=== PATIENT | male | born 1980 | race Two or more races ===

== ENCOUNTER 2017-03-09 14:39 | Emergency (ER) | payer OTHER ==
--- NOTE | 2017-03-09 15:38 | EDPHY ---
H & P Stated Complaint: fell from ladder, sent from "for MRI". back pain Time Seen by Provider: 03/09/17 15:37 HPI/ROS: CHIEF COMPLAINT: Low back pain HISTORY OF PRESENT ILLNESS: The patient presents to the ED with complaints of acute low back pain. The patient reportedly fell from a ladder at work landing on his buttock. The patient was seen at urgent care and diagnosed with a compression fracture in his back. He was sent to the ED for further evaluation. The patient denies any acute numbness or weakness. He has no history of bowel or bladder function. The patient reports moderate pain. REVIEW OF SYSTEMS: A comprehensive 10 point review of systems is otherwise negative aside from elements mentioned in the history of present illness. Source: Patient - Medical/Surgical History Hx Asthma: No Hx Chronic Respiratory Disease: No Hx Diabetes: No Hx Cardiac Disease: No Hx Renal Disease: No Hx Cirrhosis: No Hx Alcoholism: No Hx HIV/AIDS: No Hx Splenectomy or Spleen Trauma: No Other PMH: denies - Social History Smoking Status: Never smoked - Physical Exam Exam: General Appearance: Alert, mild discomfort secondary to pain Head: Atraumatic Eyes: Pupils equal, round, reactive ENT, Mouth: No hemotympanum, no oral trauma Neck: Nontender, trachea midline Respiratory: No chest wall tender, subcutaneous air, lungs clear bilaterally Cardiovascular: Regular rate and rhythm Abdomen: Abdomen is soft and nontender, pelvis stable Skin: No lacerations, No abrasion Back: Tenderness to palpation noted in the lower lumbar spine at the proximal level of L2-L3 Extremities: Nontender, full range of motion Neurological: 5/5 strength noted bilateral lower extremities, normal DTRs noted at the knees bilaterally, no clonus, no saddle anesthesia Constitutional: Initial Vital Signs Heart Rate 64 03/09/17 14:43 Respiratory Rate 18 03/09/17 14:43 Blood Pressure 129/65 H 03/09/17 14:43 O2 Sat (%) 97 03/09/17 14:43 O2 Delivery Mode Room Air Allergies/Adverse Reactions: No Known Allergies Allergy (Unverified 03/09/17 16:43) Medical Decision Making - Diagnostics Imaging Results: Imaging Impressions Lumbar Spine CT 03/09/17 16:22 Impression: 1. Mild compression fracture and spring plate of the L2 vertebral body, without retropulsion of bone or extension to the posterior elements. Results called to Dr. Wily Otto at 5:40 PM. ED Course/Re-evaluation: I reviewed the patient's outpatient x-rays which demonstrated L2 compression fracture. A CT scan was ordered for further characterization of the fracture which demonstrates no evidence of a significant retropulsion or instability. The patient is noted to be neurologically intact. He had an IV established and did receive 1 mg of IV Dilaudid. I consulted with [facility] orthopedic braces. The patient has been placed in a [place] type support brace. The patient will be discharged home with a prescription for oral narcotic medications. He is given the contact number of our on-call spine surgeon to schedule a follow-up visit in the next week with. The patient will also follow up with his workman' s Comp provider. The patient is advised to return to the emergency department for any increasing pain, numbness, weakness or other concerns. He is advised to wear the [place] brace as much as possible for support. Differential Diagnosis: Differential diagnosis considered includes compression fracture, spinal cord injury, myofascial strain - Data Points Medications Given: Discontinued Medications Hydromorphone HCl (Dilaudid) 1 mg IVP EDNOW ONE Stop: 03/09/17 16:33 Last Admin: 03/09/17 16:43 Dose: 1 mg Departure - Departure Disposition: Home, Routine, Self-Care Clinical Impression: Closed compression fracture of lumbar vertebra Qualifiers: Encounter type: initial encounter Lumbar vertebra fracture level: L2 Qualified Code(s): S32.020A - Wedge compression fracture of second lumbar vertebra, initial encounter for closed fracture Condition: Good Instructions: Vertebral Compression Fracture (ED) Additional Instructions: 1. Take Ibuprofen or Motrin 600 mg by mouth three times a day. 2. [place] as needed for severe pain 3. Please wear splint for comfort 4. Please contact the spine surgeon you have been referred to schedule a follow -up visit in the next week. 5. You do have a fracture of your lumbar spine at you. This is a nonsurgical fracture which should heal with time. 6. Please schedule a follow-up with your employers workman's Comp. 7. No heavy lifting or activity a cleared to do so by workman's compensation or the spine surgeon you have been referred to. Referrals: Huber Ruiz MD [Medical Doctor] - As per Instructions Print Language: German
[2017-03-09] MEDS ORDERED: HYDROmorphONE/DILAUDID 1 MG/ML SYR IVP ONE (16:32)
[2017-03-09 17:30] VITALS: RESP 16
[2017-03-09 20:42] VITALS: BP 124/76; PULSE 73; TEMP 97.9; O2SAT 95
== END 2017-03-09 20:41 | disposition home or self-care (01) ==
DX: S32.020A Wedge compression fracture of second lumbar vertebra, initial encounter for closed fracture (principal); W11.XXXA Fall on and from ladder, initial encounter; Y92.69 Other specified industrial and construction area as the place of occurrence of the external cause; Y99.0 Civilian activity done for income or pay; Y93.89 Activity, other specified
CPT/HCPCS: 96374; J1170